=== PATIENT | male | born 1955 | race Caucasian/White ===

== ENCOUNTER 2020-11-01 21:25 | Inpatient (IN) | payer MEDICARE, MEDICAID ==
[~2020-11-01] VITALS: Ht 175.3 cm; Wt 96.2 kg
[2020-11-01 22:53] LABS: HEMOGLOBIN 17.3 gm/dl (14.0-17.5); RED BLOOD COUNT 6.06 M/UL (4.20-5.50)
[2020-11-02] MEDS ORDERED: PROTONIX 40 MG40 M1 PO (09:50)
[2020-11-02] MEDS ORDERED: VALSARTAN320 MG PO (09:51)
[2020-11-02] MEDS ORDERED: [UNRECOGNIZED DRUG - OTHER] PO (09:52)
[2020-11-02] MEDS ORDERED: ATORVASTATIN CA40 MG PO (09:53)
[2020-11-02] MEDS ORDERED: AMLODIPINE BESY10 MG PO (09:53)
[2020-11-02] MEDS ORDERED: LOW DOSE ASPIRI81 MG PO (09:54)
[2020-11-02] MEDS ORDERED: CLOPIDOGREL75 MG PO (09:54)
[2020-11-02] MEDS ORDERED: LEVOTHYROXINE50 MCG PO (09:55)
[2020-11-02] MEDS ORDERED: METOPROLOL SUC100 MG PO (09:56)
[2020-11-02] MEDS ORDERED: FLONASE 0.05% N16 GM (09:56)
[2020-11-02] MEDS ORDERED: NOVOLIN 70100 UNIT/1 SQ ×2 (10:04→10:05)
--- NOTE | 2020-11-02 17:32 | NUR ---
PT IS ON CONTINUOUS TELE MONITORING, BUT STATED THAT HE WAS GOING TO BE TAKING A SHOWER. PT WAS EDUCATED ON RISK AND PT STATES HE IS GOING TO BE TAKING A SHOWER AND SHAVING. WCTM AND PLACE TELE MONITOR BACK ON WHEN PT IS OUT OF SHOWER
[2020-11-04 03:04] LABS: HEMOGLOBIN 15.4 gm/dl (14.0-17.5); WHITE BLOOD COUNT 8.8 K/UL (4.5-11.0)
[2020-11-04 03:05] LABS: RED BLOOD COUNT 5.42 M/UL (4.20-5.50)
[2020-11-04 03:22] LABS: BUN/CREATININE RATIO 11 (0-10)
[2020-11-05 04:14] LABS: HEMOGLOBIN 15.9 gm/dl (14.0-17.5); RED BLOOD COUNT 5.49 M/UL (4.20-5.50); WHITE BLOOD COUNT 7.4 K/UL (4.5-11.0)
[2020-11-05 04:40] LABS: BUN/CREATININE RATIO 12 (0-10)
[2020-11-06 04:34] LABS: HEMOGLOBIN 15.7 gm/dl (14.0-17.5); RED BLOOD COUNT 5.49 M/UL (4.20-5.50); WHITE BLOOD COUNT 6.6 K/UL (4.5-11.0)
[2020-11-06 04:49] LABS: BUN/CREATININE RATIO 12 (0-10)
[2020-11-07 05:54] LABS: BUN/CREATININE RATIO 15 (0-10)
== END 2020-11-07 15:57 | disposition home or self-care (01) | DRG 444 ==
LOC: ER1 21:25 → CDU 11-02 02:37 → MED SURG 4 11-02 15:08
PROVIDERS: Family Medicine; Internal Medicine Gastroenterology; ADMIT Internal Medicine
PROC: 0FD98ZX Extraction of Common Bile Duct, Via Natural or Artificial Opening Endoscopic, Diagnostic (ICD-10-PCS; 2020-11-06)
PROC: BF141ZZ Fluoroscopy of Gallbladder, Bile Ducts and Pancreatic Ducts using Low Osmolar Contrast (ICD-10-PCS; principal; 2020-11-06 10:15)
DX: K80.50 Calculus of bile duct without cholangitis or cholecystitis without obstruction (principal); K85.10 Biliary acute pancreatitis without necrosis or infection; N17.9 Acute kidney failure, unspecified; E87.1 Hypo-osmolality and hyponatremia; I25.10 Atherosclerotic heart disease of native coronary artery without angina pectoris; Z20.822 Contact with and (suspected) exposure to COVID-19; E11.40 Type 2 diabetes mellitus with diabetic neuropathy, unspecified; E11.22 Type 2 diabetes mellitus with diabetic chronic kidney disease; N18.9 Chronic kidney disease, unspecified; E03.9 Hypothyroidism, unspecified; E66.01 Morbid (severe) obesity due to excess calories; E87.6 Hypokalemia; G89.29 Other chronic pain; K21.9 Gastro-esophageal reflux disease without esophagitis; E78.5 Hyperlipidemia, unspecified; Z68.30 Body mass index [BMI] 30.0-30.9, adult; Z79.4 Long term (current) use of insulin; Z95.5 Presence of coronary angioplasty implant and graft; Z82.49 Family history of ischemic heart disease and other diseases of the circulatory system; Z88.8 Allergy status to other drugs, medicaments and biological substances; I25.2 Old myocardial infarction
CPT/HCPCS: 36415; 71045; 74330; 80053; 80061; 80076; 81001; 82150; 82550; 82553; 82962; 83036; 83690; 83735; 83874; 84100; 84484; 85025; 85610; 86140; 96374; 96375; 99285; C1769; C2617; C9113; J0295; J0330; J1100; J1335; J1650; J1885; J2405; J2704; J3010; J7030; J7120; Q9962; Q9967; U0002

== ENCOUNTER 2020-11-11 00:16 | Observation (INO) | payer MEDICARE, MEDICAID ==
[~2020-11-11] VITALS: Ht 175.3 cm; Wt 95.3 kg
[~2020-11-11 00:16] MED LIST: AMLODIPINE BESY10 MG PO; ATORVASTATIN CA40 MG PO; CLOPIDOGREL75 MG PO; FLONASE 0.05% N16 GM; LEVOTHYROXINE50 MCG PO; LOW DOSE ASPIRI81 MG PO; METOPROLOL SUC100 MG PO; NOVOLIN 70100 UNIT/1 SQ; PROTONIX 40 MG40 M1 PO; VALSARTAN320 MG PO; [UNRECOGNIZED DRUG - OTHER] PO
[2020-11-11 01:51] LABS: HEMOGLOBIN 16.4 gm/dl (14.0-17.5); RED BLOOD COUNT 5.58 M/UL (4.20-5.50); WHITE BLOOD COUNT 9.6 K/UL (4.5-11.0)
[2020-11-11 02:05] LABS: BUN/CREATININE RATIO 13 (0-10)
[2020-11-11] MEDS ORDERED: CLARITIN10 M2 PO (07:14)
[2020-11-11] MEDS ORDERED: ADULT LOW DOSE81 MG PO (07:15)
[2020-11-13] MEDS ORDERED: HYDROCODON-ACE1 EAC2 PO (09:43)
[2020-11-13] MEDS ORDERED: COLACE100 MG PO (09:43)
--- NOTE | 2020-11-13 10:46 | NUR ---
INSTRUCTED PATIENT ON NEW MEDS SENT TO PHARMACY. TAKE ALL MEDS ORDERED KEEP FOLLOW UP APPOINTMENT. SIGNS AND SYMPTOMS EXPLAINED OF INFECTION. VERBALIZED UNDERSTANDING. CARROLL CHISHOLM R.N.
== END 2020-11-13 12:29 | disposition home or self-care (01) ==
LOC: ER1 00:16 → CDU 03:33 → MED SURG 4 03:33
PROVIDERS: Physician Assistant; ADMIT Surgery
DX: K80.12 Calculus of gallbladder with acute and chronic cholecystitis without obstruction (principal); K85.10 Biliary acute pancreatitis without necrosis or infection; I25.10 Atherosclerotic heart disease of native coronary artery without angina pectoris; I10 Essential (primary) hypertension; E11.9 Type 2 diabetes mellitus without complications; E78.5 Hyperlipidemia, unspecified; K21.9 Gastro-esophageal reflux disease without esophagitis; E66.01 Morbid (severe) obesity due to excess calories; Z68.31 Body mass index [BMI] 31.0-31.9, adult; Z95.5 Presence of coronary angioplasty implant and graft; Z88.1 Allergy status to other antibiotic agents; Z79.82 Long term (current) use of aspirin; Z79.02 Long term (current) use of antithrombotics/antiplatelets; Z79.4 Long term (current) use of insulin; Z79.899 Other long term (current) drug therapy; Z20.822 Contact with and (suspected) exposure to COVID-19
CPT/HCPCS: 76705; 80053; 81001; 82962; 83690; 85025; 96372; 96374; 96375; 99285; G0378; J0690; J1644; J2001; J2270; J2405; J2704; J2710; J3010; J7030; J7120; U0002